=== PATIENT | male | born 1950 | race Caucasian/White ===

== ENCOUNTER → 2019-12-19 | Outpatient (CLI) | payer MEDICARE ==
[~2019-12-19] MED LIST: ALBU.083IS IH; ALBU90I INH; ATOR10 PO; BUDE10.22 INH; FLUSAL2505 IH; HYDACE5 PO; LORA1 PO; LOSA50 PO; META400 PO; MONT10T PO; OXYACE5T PO; PENVK500 PO; PRED10 PO
== END | disposition home or self-care (01) ==
LOC: LAB SHORT 10:33 → PLD 10:33
DX: L57.0 Actinic keratosis (principal)
CPT/HCPCS: 88305; 88312

== ENCOUNTER → 2021-12-14 | Outpatient (CLI) | payer MEDICARE | END | disposition home or self-care (01) | LOC: LAB SHORT 11:31 → LAB 11:31 | DX: D22.72 Melanocytic nevi of left lower limb, including hip (principal) | CPT/HCPCS: 88305 ==

== ENCOUNTER → 2023-01-11 | Outpatient (CLI) | payer MEDICARE, OTHER | LOC: LAB SHORT 09:07 → LAB 09:07 | DX: B35.1 Tinea unguium (principal) | CPT/HCPCS: 87102 ==